=== PATIENT | female | born 1960 ===

== ENCOUNTER 2024-08-18 09:37 | Emergency (ER) | payer OTHER ==
[~2024-08-18] VITALS: Ht 160 cm; Wt 59.0 kg
[~2024-08-18 09:37] MED LIST: AZIT250 PO; CODGUAEL PO; METPRE4DP PO; NAPR550 PO; OXYACE5T PO
[2024-08-18] MEDS ORDERED: Albuterol HFA200 ACT/6.7 GM INH INH ONE (10:10)
== END 2024-08-18 10:57 | disposition home or self-care (01) ==
LOC: ER 09:37
DX: R06.02 Shortness of breath (principal); Z79.2 Long term (current) use of antibiotics; Z79.899 Other long term (current) drug therapy
CPT/HCPCS: 99285; A9270